=== PATIENT | female | born 1940 | race African-American/Black ===

== ENCOUNTER 2019-12-23 15:46 | Emergency (ER) | payer MEDICARE, SELFPAY ==
--- NOTE | ~2019-12-23 | CT_ITS ---
EXAMINATION: CT abdomen pelvis wo con DATE: 12/23/2019 19:04 INDICATION: Right lower quadrant pain TECHNIQUE: Computed tomography (CT) of the abdomen and pelvis was performed without intravenous contr ast. The dose-length product (DLP) was 1004.99 mGy-cm. Automated exposure control and iterative recon struction technique were employed. COMPARISON: None FINDINGS: Nodules of the visualized lung bases measure up to 4 mm. The heart size is normal. Punctate calcifications in an otherwise normal spleen likely represent healed granulomatous disease. The live r, pancreas, gallbladder, and adrenal glands are normal. Cysts of the kidneys measure up to 4.2 cm on the left. There is a 1.1 cm hyperattenuating cyst of the right mid kidney. Streak artifact partially obscures visualization of the distal ureters and the bladder however no hydroureter is seen. No path ologically enlarged abdominal or pelvic lymph nodes are identified. There is no free intraperitoneal gas or evidence of bowel obstruction. There are changes of right total hip arthroplasty with heteroto pic ossification surrounding the right hip joint. There are bridging osteophytes at multiple levels i n the spine, consistent with diffuse idiopathic skeletal hyperostosis (DISH). IMPRESSION: 1. No CT correlate for the patient's symptoms. 2. Indeterminate right kidney lesion which could reflect a hemorrhagic/proteinaceous cyst versus neop lasm. Recommend nonemergent follow-up by CT or MRI without and with contrast. Reviewed, dictated and finalized at location A. GE PUMP OPERATOR IMPRESSION: 1. No CT correlate for the patient's symptoms. 2. Indeterminate right kidney lesion which could reflect a hemorrhagic/proteina ceous cyst versus neoplasm. Recommend nonemergent follow-up by CT or MRI withou t and with contrast.
[2019-12-23 15:51] VITALS: BP 170/76; PULSE 91; RESP 17; TEMP 36.5; O2SAT 97
--- NOTE | 2019-12-23 16:23 | ED.ABDPAIN ---
HPI - Abdominal Pain General Chief Complaint: Abdominal Pain Stated Complaint: RLQ ABD PAIN Time Seen by Provider: 12/23/19 16:22 Source: patient, family and RN notes reviewed Mode of arrival: other Limitations: altered mental status History of Present Illness HPI narrative: Pt is a 79 y/o female who presents to the ED, via EMS, with c/o abdominal pain with an unknown onset. Pt states that she is not sure why she is here. Pt has a hx of Alzheimer's disease and dementia. Pt denies being in any pain. Pt's family was not at bedside during the initial evaluation. Pt's son arrived to the room shortly after. Pt's son states the NH called him and stated the pt was c/o right sided abdominal pain. Pt had an x-ray that showed constipation. Pt was given some laxatives and was able to produce a BM. Pt's son denies the pt having nausea and vomiting. HPI is limited due to pt's AMS. MD elicited complaint: abdominal pain Onset (ago): unknown Pain Consistency: now resolved Location: none Associated symptoms: denies other symptoms Related Data Allergies Allergy/AdvReac Type Severity Reaction Status Date / Time codeine AdvReac Unknown Verified 12/23/19 16:53 Review of Systems Review of Systems: ROS unobtainable: other (limited due to pt's AMS) Gastrointestinal: Gastrointestinal: Reports abdominal pain (resolved), Denies nausea and Denies vomiting PMFSH Past Medical History Medical History (Updated 12/23/19 @ 19:44 by Sha Owens MD) Alzheimers disease Dementia Surgical History Surgical History (Updated 12/23/19 @ 16:28 by Samantha May) Surgical history unknown Social History Social History Gender identity (if verbalized by the patient): Female Exam Narrative: Exam Narrative: General appearance: Well-developed, well-nourished Skin: Normal color Head: Normocephalic, nontraumatic Eyes: Clear conjunctiva ENT: Oropharynx normal, ears normal, nose normal Neck: Supple, nontender Chest and respiratory: Airway patent, no respiratory distress, no accessory muscle use Heart: Regular rate/rhythm Abdomen: Soft, nontender, no organomegaly, quiet bowel sounds Vascular: Normal peripheral pulses, normal capillary refill. Musculoskeletal: Normal range of motion, nontender back Neurologic: Alert and oriented ?3, [employer] K[employer] T[employer]ER is normal as tested, no gross motor deficit Course Course Emergency Course: Unchanged Reevaluation(s) Reevaluation #1: Patient looks okay, denying any complaint. Old records from [facility] showed that the patient have history of chronic kidney disease, her creatinine today is 2.1, no old labs for comparison. Also have history of diabetes, hypothyroidism, hyperlipidemia, Alzheimer's disease, GERD and lower back pain Date: 12/23/19 Time: 18:45 Vital Signs Vital signs: Vital Signs Temperature 36.5 C 12/23/19 15:51 Pulse Rate 91 12/23/19 15:51 Respiratory Rate 17 12/23/19 15:51 Blood Pressure 170/76 H 12/23/19 15:51 Pulse Oximetry 97 12/23/19 15:51 Temperature 36.5 C 12/23/19 15:51 Pulse Rate 87 12/23/19 17:56 Respiratory Rate 18 12/23/19 17:56 Blood Pressure 156/72 H 12/23/19 17:56 Pulse Oximetry 100 12/23/19 17:56 MDM - Abdominal Pain MDM Narrative Medical decision making narrative: Patient have history of dementia, currently denying any symptoms, abdominal exam showed no tenderness. Labs, CT abdomen and pelvis ordered. Further plan to follow. Patient unable to tell me any history. Differential Diagnosis Differential diagnosis: Likely abdominal pain, diverticulitis and pancreatitis Lab Data Result diagrams: 12/23/19 17:58 12/23/19 17:58 Labs: Lab Results
[2019-12-23 16:35] LABS: Add Urine Microscopic? YES; Appearance Urine Clear (Clear); Bilirubin Urine Negative (Negative); Blood Urine Negative (Negative); Color Urine Straw (Yellow); Glucose Urine UA Negative (Negative); Ketones Urine Negative (Negative); Leukocyte Esterase Ur Negative LEU/UL (Negative); Mucus Urine Rare /lpf; Nitrate Urine Negative (Negative); Protein Urine Negative (Negative); RBC Urine 0-2 /hpf (0-2); Specific Grav Ur 1.015 (1.001-1.035); Squamous Epithelial Cell Urine Rare /hpf (Few); Urobilinogen Urine Negative mg/dL (<2.0); WBC Urine 0-3 /hpf
[2019-12-23] MEDS: SODIUM CHLORIDE 0.9% IV 1,000 ML 999 ML IV CONT (16:50)
--- NOTE | 2019-12-23 17:51 | PC.NURSE ---
Multiple attempts to obtain blood orders with no success, lab unable to draw labs. EDP notified.
--- NOTE | 2019-12-23 17:51 | PC.NURSE ---
Blood has been sent 2 times to lab and both times it was rejected. Called lab to ask if anyone could come draw the pt and they said they had no extra people to send up. One of the nurses from the ED are going to take the ultrasound to attempt to get more blood.
[2019-12-23 17:56] VITALS: BP 156/72; PULSE 87; RESP 18; O2SAT 100
[2019-12-23 18:04] LABS: Basophils Absolute Auto 0.1 K/mm3 (0.0-0.1); Basophils Percent Auto 0.7 % (0.2-1.2); Eosinophils Absolute Auto 0.3 K/mm3 (0-0.3); Eosinophils Percent Auto 2.7 % (0-4.4); Hematocrit 34.8 % (37.0-47.0); Hemoglobin 10.6 g/dL (12.0-15.0); Immature Granulocyte Absolute 0.03 K/mm3 (0.00-0.031); Immature Granulocyte Percent A 0.3 % (0-0.5); Lymphocytes Absolute Auto 2.85 K/mm3 (0.9-3.2); Lymphocytes Percent Auto 30.3 % (18.3-44.2); Mean Corpuscular HGB Conc 30.5 g/dl (32-36); Mean Corpuscular Hemoglobin 27.7 pg (26-34); Mean Corpuscular Volume 91.1 fl (80-100); Mean Platelet Volume 10.6 fl (7.4-10.4); Monocytes Absolute Auto 0.5 K/mm3 (0.1-0.6); Monocytes Percent Auto 5.5 % (2.6-8.5); Neutrophils Absolute Auto 5.7 K/mm3 (1.3-6.7); Neutrophils Percent Auto 60.5 % (45.5-73.1); Platelet Count Result 227 k/mm3 (150-375); Red Blood Count 3.82 M/mm3 (4.2-5.4); Red Cell Distribution Width 15.6 % (11.5-14.5); White Blood Count 9.4 K/mm3 (4.5-10.0)
[2019-12-23 18:28] LABS: Alanine Aminotransferase 16 U/L (4-35); Albumin Level 3.9 g/dL (3.5-5.1); Alkaline Phosphatase 79 U/L (38-126); Aspartate Amino Transferase 24 U/L (14-36); Bilirubin,Total 0.4 mg/dL (0.2-1.3); Blood Urea Nitrogen 24 mg/dL (7-17); Calcium 8.5 mg/dL (8.4-10.2); Carbon Dioxide 28 mmol/L (22-30); Chloride 110 mmol/L (98-107); Estimated Glomerular Filt Rate 28; Glucose 52 mg/dL (65-105); Potassium 4.4 mmol/L (3.4-5.0); Sodium 144 mmol/L (137-145)
--- NOTE | 2019-12-23 18:29 | PC.NURSE ---
Spoke with MARTIN Owens about pt critical glucose, MARTIN states he wants 2 amps D50% IVP Stat.
[2019-12-23 18:30] LABS: Lipase 135 U/L (23-300)
[2019-12-23] MEDS: DEXTROSE 50% 25 GM/50 ML SYRINGE 50 GM (18:35)
[2019-12-23 18:41] VITALS: BP 139/66; PULSE 96; RESP 19; O2SAT 98
[2019-12-23 18:55] LABS: Glucose Point of Care 125 (65-105)
[2019-12-23 19:35] VITALS: BP 120/69; PULSE 71; RESP 21; O2SAT 94
--- NOTE | 2019-12-23 19:39 | PC.NURSE ---
assume care of pt at this time. report from ADRIANA Gibson
[2019-12-23 19:50] VITALS: BP 124/64; PULSE 84; RESP 12; TEMP 36.4; O2SAT 100
== END 2019-12-23 19:50 ==
PROVIDERS: Emergency Provider Emergency Medicine
DX: E16.2 Hypoglycemia, unspecified (principal); N28.9 Disorder of kidney and ureter, unspecified; N18.9 Chronic kidney disease, unspecified; G30.9 Alzheimer's disease, unspecified; F02.80 Dementia in other diseases classified elsewhere, unspecified severity, without behavioral disturbance, psychotic disturbance, mood disturbance, and anxiety
CPT/HCPCS: 36415; 51701; 74176; 80053; 81001; 82948; 83690; 85025; 96361; 96374; 99284; J7030